=== PATIENT | male | born 1965 | race Caucasian/White ===

== ENCOUNTER 2019-04-01 22:40 | Emergency (ER) | payer OTHER ==
[~2019-04-01] VITALS: Ht 180.3 cm; Wt 93.2 kg
[2019-04-01 22:58] VITALS: Ht 180.3 cm; Wt 93.2 kg
[2019-04-01] MEDS ORDERED: DUEXIS 800-26.1 EACH PO (22:59)
[2019-04-01] MEDS ORDERED: HYDROCODON-ACE1 EA10 PO (22:59)
[2019-04-01] MEDS ORDERED: LISINOPRIL10 MG PO (22:59)
[2019-04-02 02:06] VITALS: BP 149/93
[2019-04-03] MEDS ORDERED: HYDROCODON-ACE1 EAC2 PO (12:23)
[2019-04-03] MEDS ORDERED: VISTARIL50 MG PO (16:37)
[2019-04-03] MEDS ORDERED: PERCOCET 10-321 EAC1 PO (16:37)
== END 2019-04-02 02:06 | disposition home or self-care (01) ==
LOC: D.ER 22:40
DX: S93.05XA Dislocation of left ankle joint, initial encounter (principal); W18.30XA Fall on same level, unspecified, initial encounter; Y93.89 Activity, other specified; Y92.89 Other specified places as the place of occurrence of the external cause

== ENCOUNTER 2019-04-03 10:31 | Day surgery (SDC) | payer OTHER ==
[~2019-04-03 10:31] MED LIST: DUEXIS 800-26.1 EACH PO; HYDROCODON-ACE1 EA10 PO; LISINOPRIL10 MG PO
[2019-04-03 11:16] LABS: HEMATOCRIT 44.4 % (42.0-54.0); HEMOGLOBIN 15.7 g/dL (13.5-17.5); MCH 32.4 pg (26.0-34.0); MCHC 35.4 g/dL (31.0-37.0); MCV 91.7 fL (80.0-100.0); MEAN PLATELET VOLUME 9.6 fL (7.4-10.4); RBC 4.84 10x6/uL (4.20-6.10); RDW 13.6 % (11.5-14.5); WBC 7.9 10x3/uL (4.8-10.8)
[2019-04-03] MEDS ORDERED: HYDROCODON-ACE1 EAC2 PO (12:23)
[2019-04-03 12:31] VITALS: BP 129/83; BMI 28.6
[2019-04-03] MEDS ORDERED: PERCOCET 10-321 EAC1 PO (16:37)
[2019-04-03] MEDS ORDERED: VISTARIL50 MG PO (16:37)
--- NOTE | 2019-04-03 17:45 | NUR ---
PIV DC'D WITH TIP INTACT. PATIENT DRESSING IN PERSONAL CLOTHING
--- NOTE | 2019-04-03 17:55 | NUR ---
DISCHARGE INSTRUCTIONS REVIEWED WITH PATIENT AND PARENTS, DISCHARGED HOME VIA WHEELCHAIR TO PRIVATE VEHICLE WITH PARENTS
--- NOTE | 2019-04-04 09:36 | OP ---
PATIENT NAME: EUGENIA SUN MEDICAL RECORD: [id number] :63 LOCATION:[facility] ADMISSION DATE: SURGEON: JERALD ARRIAGA DO DATE OF OPERATION: 04/03/2019 PROCEDURE PERFORMED: Left ankle open reduction internal fixation. PREOPERATIVE DIAGNOSIS: Left ankle distal fibula fracture and lateral malleolus fracture. POSTOPERATIVE DIAGNOSIS: Left ankle distal fibula fracture and lateral malleolus fracture. INDICATIONS: Mr. Sun is a 53-year-old male that presented to the ER after falling couple of days ago and had a lateral malleolus fracture, minimally displaced. He came to my clinic. He had fallen since again and he chose to have surgery. He did not think that he would risk it, so he decided to go ahead with surgery. I informed him of the risks including damage to nerves, vessels, especially superficial peroneal nerve, infection, bleeding and need for further surgery. He signed a consent. SURGEON: Jerald Arriaga MD DESCRIPTION OF THE PROCEDURE: The patient was taken to the operative suite, laid in supine position, given general anesthetic. After given a block by anesthesia and given 2 grams Ancef preoperatively, the left lower extremity was prepped and draped in sterile fashion. A timeout was performed. Everyone was agreeance with correct side, site, patient and procedure. The incision then began over the fibula. Careful dissection was made down to the fibula. The fracture was cleared out. A clamp was placed on it to reduce it. This was well reduced. A plate was put on the fibula and it is lined up on AP and lateral. Once it was in good alignment, the distal locking screws were put in first and then a compression type screw was put in the shaft. The proximal 3 holes were then filled and a locking screw was placed in the middle one and cortical screws were in the other two. This is confirmed to be good on AP and then a mortise stress view was done to make sure there is no subluxation of the talus laterally and no medial clear space widening and there was not and then a good fixation was seen on the lateral as well. The tourniquet was then let down and then was inflated prior to starting the procedure and it was up for 27 minutes. The left lower extremity had been exsanguinated with an Esmarch prior to the inflation of the tourniquet. The incision was then closed with 2-0 Vicryl in an inverted interrupted fashion and then a ZipLine was placed on it and the wound was dressed with Adaptic, 4 x 4s, and ABD and an ABD was also placed on the heel and then a 4 x 30 splint was placed on the ankle, posterior short leg splint and held in to place while it hardened. He was then awakened and taken to recovery in stable condition. Blood loss was about 50 mL. COMPLICATIONS: None. TRANSINT:[id number] Voice Confirmation ID: [id number] DOCUMENT ID: [id number] OPERATIVE REPORT [id number] EUGENIA SUN MICHAEL D, DO at 0936 CC: [id number] DICTATION DATE: 04/03/19 1634 ANGIOGRAPHY NURSE: 04/03/19 2315 [facility] 04/03/[address] [address]
[2019-05-28] MEDS ORDERED: HYDROCODONE-A1 UDTA2 PO (16:44)
[2019-05-28] MEDS ORDERED: LEXAPRO10 MG PO (16:45)
== END 2019-04-03 17:55 | disposition home or self-care (01) ==
LOC: D.OPS 10:31
PROVIDERS: Anesthesiology; ATTEND Orthopaedic Surgery
DX: S82.62XA Displaced fracture of lateral malleolus of left fibula, initial encounter for closed fracture (principal); W19.XXXA Unspecified fall, initial encounter; Z01.812 Encounter for preprocedural laboratory examination

== ENCOUNTER 2019-05-29 09:39 | Inpatient (IN) | payer OTHER ==
[~2019-05-29] VITALS: Ht 180.3 cm; Wt 93.2 kg
[2019-05-29] VITALS (10 sets, daily range): BP systolic 115–146; BP diastolic 64–101; Ht 180.3 cm; Wt 93.2 kg
[~2019-05-29 09:39] MED LIST changes: +HYDROCODON-ACE1 EAC2 PO; +HYDROCODONE-A1 UDTA2 PO; +LEXAPRO10 MG PO; +PERCOCET 10-321 EAC1 PO; +VISTARIL50 MG PO
[2019-05-29 10:10] LABS: BASOPHILS 0.2 % (0-2); EOSINOPHILS 1.3 % (0-7); HEMOGLOBIN 14.2 g/dL (13.5-17.5); IMMATURE GRANULOCYTES 0.3 % (0-5); LYMPHOCYTES 16.7 % (15-50); MCHC 34.6 g/dL (31.0-37.0); MCV 89.5 fL (80.0-100.0); MEAN PLATELET VOLUME 9.6 fL (7.4-10.4); MONOCYTES 8.5 % (2-11); PLATELET COUNT 184 10x3/uL (130-400); RBC 4.58 10x6/uL (4.20-6.10); RDW 13.1 % (11.5-14.5); WBC 9.3 10x3/uL (4.8-10.8)
[2019-05-29 11:34] LABS: ERYTHROCYTE SEDIMENTATION RATE 15 mm/hr (0-20)
--- NOTE | 2019-05-29 14:47 | NUR ---
VANCOMYCIN 1.25GRAM OF VANCOMYCIN IN 250CC OF NORMAL SALINE INFUSING ON ADMIT
--- NOTE | 2019-05-29 15:15 | NUR ---
PATIENT TO ROOM WITH NO COMPLAINTS OR SIGNS OF DISTRESS. IV INTACT. VS STABLE. LEFT LEG DRESSING CDI. CALL LIGHT WITHIN REACH. FAMILY AT BEDSIDE.
--- NOTE | 2019-05-29 16:00 | NUR ---
PATIENT VOIDED 200 ML OF LIGHT PINK URINE WITH NO BLOOD CLOTS.
--- NOTE | 2019-05-29 16:20 | NUR ---
PATIENT RECIEVED DC INSTRUCTIONS. VERBALIZED UNDERSTANDING, SON AT BEDSIDE. NO QUESTIONS AT THIS TIME. AWAITING WC FOR DC. CALL LIGHT WITHIN REACH.
--- NOTE | 2019-05-29 18:42 | NUR ---
PATIENT IN BED WITH IV INTACT. SCD ON RIGHT LEG. DRESSING TO LEFT LEG CDI. NO COMPLAINTS AT THIS TIME. VS STABLE. CALL LIGHT WITHIN REACH.
--- NOTE | 2019-05-29 19:00 | NUR ---
BEDSIDE REPORT RECEIVED AND CARE OF PT ASSUMED. PT LYING IN HIGH TABARES'S POSITION WATCHING TV. IV TO RIGHT HAND PATENT WITH 1/2 NS INFUISNG AT 50 ML/HR. DRESSING ON LEFT ANKLE CLEAN AND DRY. WILL MONITOR FOR NEEDS.
--- NOTE | 2019-05-29 20:15 | NUR ---
HS MEDICATIONS GIVEN TO INCLUDE OXY 10 PO AND TORADOL IV FOR PAIN. WILL MONITOR FOR EFFECTIVENESS.
--- NOTE | 2019-05-29 20:25 | NUR ---
GAVE SANDWICH TRAY AND APPLESAUCE FOR HS SNACK. WILL CONTINUE TO MONITOR FOR NEEDS.
--- NOTE | 2019-05-29 22:00 | NUR ---
PT RESTING QUIETLY...STATES PAIN UNDER CONTROL AT THIS TIME. WILL CONTINUE TO MONITOR FOR NEEDS.
[2019-05-30] VITALS: BP 120/68
[2019-05-30 04:00] VITALS: BP 154/84
[2019-05-30 06:46] LABS: BASOPHILS 0 % (0-2); EOSINOPHILS 0 % (0-7); HEMATOCRIT 36.6 % (42.0-54.0); HEMOGLOBIN 12.5 g/dL (13.5-17.5); IMMATURE GRANULOCYTES 0.1 % (0-5); LYMPHOCYTES 9.1 % (15-50); MCH 30.9 pg (26.0-34.0); MCHC 34.2 g/dL (31.0-37.0); MCV 90.4 fL (80.0-100.0); MEAN PLATELET VOLUME 10.3 fL (7.4-10.4); MONOCYTES 7.5 % (2-11); NEUTROPHILS 83.3 % (40-80); PLATELET COUNT 180 10x3/uL (130-400); RBC 4.05 10x6/uL (4.20-6.10); RDW 12.9 % (11.5-14.5); WBC 7.1 10x3/uL (4.8-10.8)
--- NOTE | 2019-05-30 08:41 | OP ---
PATIENT NAME: EUGENIA SUN MEDICAL RECORD: [id number] :63 LOCATION:[facility] ADMISSION DATE:05/29/19 SURGEON: JERALD ARRIAGA DO DATE OF OPERATION: 05/29/2019 PROCEDURE PERFORMED: Removal of hardware with irrigation and debridement of the left ankle and left distal fibula. PREOPERATIVE DIAGNOSIS: Infected left ankle distal fibula, status post open reduction internal fixation, postop infection. POSTOPERATIVE DIAGNOSIS: Infected left ankle distal fibula, status post open reduction internal fixation, postop infection. INDICATIONS: Mr. Sun is a 54-year-old male who presented to my office yesterday after his left ankle was beginning to swell and get red. He did not have any drainage. He said he felt feverish and this came on suddenly. He did not have any other symptoms or illnesses recently. He is 10 weeks status post left distal fibula open reduction internal fixation. This came out of nowhere and did not have any signs prior to this. The patient was doing well and the fracture was healing. Informed we would do irrigation, debridement, removal of hardware, take cultures and keep him overnight at least until the culture results ____ antibiotics, put him on. He was okay with that and was aware of the risk for further fracture, need for further surgery, continued antibiotics and he signed the consent. SURGEON: Jerald Arriaga DO PROCEDURE IN DETAIL: The patient was taken to the operative suite, laid in supine position, given general anesthetic. He was given a block by anesthesia prior to going back to the operating room. The left lower extremity was prepped and draped in sterile fashion. A timeout was performed and everyone was in agreement with correct side, site, patient and procedure had been sedated and LMA was placed. The timeout had been performed and then the incision began over the old incision on the lateral malleolus straight down to the plate. Cultures were then taken and then vancomycin was given for antibiotic. The plate screws were removed and the plate was removed and then 3 liters normal saline was used to irrigate the wound. A brush was used to scrub and a curette was used to scrape any devitalized tissue. After that was completed, the wound was closed with 2-0 Vicryl in inverted interrupted fashion and then ZipLine was placed on the skin. Adaptic, 4 x 4's, ABD and cast padding was then placed on the ankle and placed on a 4 x 30 splint, posterior short leg splint. He was awakened and taken to recovery in stable condition. BLOOD LOSS: Approximately 100 mL. COMPLICATION: None. TRANSINT:[id number] Voice Confirmation ID: [id number] DOCUMENT ID: [id number] OPERATIVE REPORT [id number] EUGENIA SUN MICHAEL D, DO at 0841 CC: [id number] DICTATION DATE: 05/29/19 1410 ENDBAND SIZER: 05/29/192013 ADM IN [facility] [address] [place] [address]
[2019-05-30 09:35] VITALS: BP 101/47
[2019-05-30 11:30] LABS: ALBUMIN 3.1 g/dL (3.4-5.0); ALKALINE PHOSPHATASE 66 U/L (46-116); ALT (SGPT) 19 U/L (10-68); BILIRUBIN - TOTAL 0.36 mg/dL (0.2-1.3); CALC OSMOLALITY 285 mosm/kg (275-300); CALCIUM 8.3 mg/dL (8.5-10.1); CARBON DIOXIDE 24.5 mmol/L (21.0-32.0); CHLORIDE - SERUM 107 mmol/L (98-107); GLUCOSE 153 mg/dL (74-106); POTASSIUM - SERUM 4.2 mmol/L (3.5-5.1); PROTEIN - SERUM 6.5 g/dL (6.4-8.2); SODIUM 141 mmol/L (136-145); UREA NITROGEN 19 mg/dL (7-18); eGFR NON AFRICAN AMERICAN 82 mL/min (90-120)
--- NOTE | 2019-05-30 11:39 | NUR ---
PT RESTING IN BED. NO SIGNS OF DISTRESS. IV TO RIGHT HAND PATENT NO REDNESS OR TENDERNESS. HAS DRESSING TO ANKLE CLEAN AND INTACT. DENIES ANY FURHTER NEED AT THIS TIME. CALL LIGHT IN REACH. BED LOW POSITION. FAMILY AT BEDSIDE
[2019-05-30 13:16] VITALS: BP 125/66
[2019-05-30 17:16] VITALS: BP 111/58
--- NOTE | 2019-05-30 19:00 | NUR ---
REPORT RECEIVED AND CARE OF PT ASSUMED. PT LYING IN HIGH TABARES'S POSITION. DISCUSSED WITH PT THAT A PHARMACY SPECIALIST HAS BEEN ORDERED. WILL MONITOR FOR NEEDS.
--- NOTE | 2019-05-30 19:10 | NUR ---
STARTED ADMINISTRATIVE SERVICES OFFICER W/ DILAUDID WITH 2ND NURSE WITNESS. TEACHING PERFORMED.
[2019-05-30 20:00] VITALS: BP 132/70
--- NOTE | 2019-05-30 20:02 | NUR ---
HS MEDICATIONS GIVEN. WILL CONTINUE TO MONITOR FOR NEEDS.
[2019-05-31] VITALS: BP 125/64
[2019-05-31 04:00] VITALS: BP 127/72
[2019-05-31 04:54] LABS: BASOPHILS 0.3 % (0-2); EOSINOPHILS 0.6 % (0-7); HEMATOCRIT 33.6 % (42.0-54.0); HEMOGLOBIN 11.4 g/dL (13.5-17.5); IMMATURE GRANULOCYTES 0.2 % (0-5); LYMPHOCYTES 41.6 % (15-50); MCH 30.8 pg (26.0-34.0); MCHC 33.9 g/dL (31.0-37.0); MCV 90.8 fL (80.0-100.0); MEAN PLATELET VOLUME 10.1 fL (7.4-10.4); MONOCYTES 6.9 % (2-11); NEUTROPHILS 50.4 % (40-80); PLATELET COUNT 160 10x3/uL (130-400); RDW 13.2 % (11.5-14.5); WBC 6.2 10x3/uL (4.8-10.8)
[2019-05-31 08:07] VITALS: BP 123/50
--- NOTE | 2019-05-31 08:45 | NUR ---
PATIENT IN BED WITH IV INTACT. NO COMPLAINTS OR SIGNS OF DISTRESS. CALL LIGHT WITHIN REACH.
[2019-05-31 09:34] LABS: ALBUMIN 3.3 g/dL (3.4-5.0); ALKALINE PHOSPHATASE 68 U/L (46-116); ALT (SGPT) 22 U/L (10-68); CALC OSMOLALITY 287 mosm/kg (275-300); CALCIUM 8.2 mg/dL (8.5-10.1); CARBON DIOXIDE 26.6 mmol/L (21.0-32.0); CHLORIDE - SERUM 107 mmol/L (98-107); GLUCOSE 108 mg/dL (74-106); POTASSIUM - SERUM 3.9 mmol/L (3.5-5.1); PROTEIN - SERUM 6.8 g/dL (6.4-8.2); SODIUM 143 mmol/L (136-145); UREA NITROGEN 19 mg/dL (7-18); eGFR NON AFRICAN AMERICAN 82 mL/min (90-120)
[2019-05-31 14:01] VITALS: BP 139/65
[2019-05-31 17:28] VITALS: BP 130/69
--- NOTE | 2019-05-31 17:30 | NUR ---
PATIENT SITTING UP IN CHAIR WITH NO COMPLAINTS OR SIGNS OF DISTRESS. CALL LIGHT WITHIN REACH.
--- NOTE | 2019-05-31 19:00 | NUR ---
BEDSIDE REPORT RECEIVED AND CARE OF PT ASSUMED. CONTACT ISOLATION PRECAUTIONS IN PLACE. PT LYING IN HIGH TABARES'S POSITION VISITING WITH FAMILY MEMBER. IV TO RIGHT HAND PATENT WITH 1/2 NS INFUSING AT 50 ML/HR, AND SERICULTURIST W/ DILAUDID IN USE FOR PAIN CONTROL. LEFT LOWER LEG ELEVATED. GOOD PEDAL AND POPLITEAL PULSES PALPATED...FOOT WARM AND TOES FREELY MOVING WITHOUT PAIN. WILL MONITOR FOR NEEDS.
--- NOTE | 2019-05-31 19:10 | NUR ---
PATIENT SITTING UP IN BED WITH FAMILY AT BEDSIDE. CALL LIGHT WITHIN REACH.
[2019-05-31 20:00] VITALS: BP 143/77
--- NOTE | 2019-05-31 20:24 | NUR ---
HS MEDICATIONS GIVEN TO INCLUDE PRN TORADOL FOR PAIN. PT DECLINED HS SNACK FAMILY HAD BROUGHT HIM A MILKSHAKE. WILL CONTINUE TO MONITOR FOR NEEDS.
[2019-06-01] VITALS: BP 127/76
[2019-06-01 04:00] VITALS: BP 111/60
[2019-06-01 06:39] LABS: BASOPHILS 0.2 % (0-2); EOSINOPHILS 2.6 % (0-7); HEMATOCRIT 36.1 % (42.0-54.0); HEMOGLOBIN 12.2 g/dL (13.5-17.5); IMMATURE GRANULOCYTES 0.2 % (0-5); LYMPHOCYTES 48.5 % (15-50); MCH 30.7 pg (26.0-34.0); MCHC 33.8 g/dL (31.0-37.0); MCV 90.9 fL (80.0-100.0); MONOCYTES 7.1 % (2-11); NEUTROPHILS 41.4 % (40-80); PLATELET COUNT 185 10x3/uL (130-400); RBC 3.97 10x6/uL (4.20-6.10); RDW 13.1 % (11.5-14.5); WBC 5.1 10x3/uL (4.8-10.8)
[2019-06-01 07:06] LABS: ALKALINE PHOSPHATASE 63 U/L (46-116); ALT (SGPT) 23 U/L (10-68); BILIRUBIN - TOTAL 0.25 mg/dL (0.2-1.3); CALC OSMOLALITY 287 mosm/kg (275-300); CALCIUM 8.2 mg/dL (8.5-10.1); CARBON DIOXIDE 27.6 mmol/L (21.0-32.0); CHLORIDE - SERUM 109 mmol/L (98-107); CREATININE - SERUM 0.9 mg/dL (0.6-1.3); GLUCOSE 88 mg/dL (74-106); POTASSIUM - SERUM 3.8 mmol/L (3.5-5.1); PROTEIN - SERUM 6.1 g/dL (6.4-8.2); SODIUM 144 mmol/L (136-145); UREA NITROGEN 18 mg/dL (7-18); eGFR NON AFRICAN AMERICAN > 90 mL/min (90-120)
--- NOTE | 2019-06-01 07:15 | NUR ---
REC'D IN ROOM AWAKE AND ALERT. RESP EVEN AND UNLABORED WITH NO DISTRESS NOTED. CAN EXPRESS NEEDS AND WANTS. NO C/O NOTED OR VOICED. DRESSING CLEAN DRY AND INTACT. ASSESSMENT COMPLETED. C/L IN REACH AT BEDSIDE.
[2019-06-01 08:34] VITALS: BP 138/82
[2019-06-01] MEDS ORDERED: VIBRAMYCIN 100100 MG PO (08:48)
[2019-06-01] MEDS ORDERED: LOW DOSE ASPIRI81 M1 PO (08:49)
[2019-06-01] MEDS ORDERED: OXYCODONE HCL5 M1 PO (08:49)
--- NOTE | 2019-06-01 10:01 | MORECARE ---
CASE MANAGEMENT DISCHARGE SUMMARY PATIENT: EUGENIA SUN UNIT: [id number] ADM DATE: 05/29/19 AGE: 54 : 63 SEX: M ROOM/BED: D.2225 AUTHOR: VESTA RIZZO PHYSICIAN: REFERRING PHYSICIAN: JERALD ARRIAGA DO DATE OF SERVICE: 06/01/19 Discharge Plan Patient Name: EUGENIA SUN Facility: [facility]:[place] : 1965 Planned Disposition: Home Anticipated Discharge Date: 06/01/19 Discharge Date: Expected LOS: 3 Initial Reviewer: [email or web address] Initial Review Date: 05/29/2019 Generated: 06/01/19 11:01 am Comments DCP- Discharge Planning Updated by [email or web address]: Dilia Haddad on 06/01/19 8:[address] Patient Name: EUGENIA SUN Admission Status: Elective Accout number: [id number] Admission Date: 05-29-2019 : 1965 Admission Diagnosis: Attending: JERALD ARRIAGA Current LOS: 3 Anticipated DC Date: 06-01-2019 Planned Disposition: Home Primary Insurance: [facility] Discharge Planning Comments: CM MET WITH PATIENT AND HIS FAMILY. HE STATES HE HAS WALKER AND CRUTCHES AT HOME AND HIS MOM IS GOING TO HELP HIM. PLANS TO DC TO HOME TODAY. STATES DOESN'T NEED HH. CM TO FOLLOW AND ASSIST NEEDED. Blister Pack Operator: Dilia Haddad Patient Name: EUGENIA SUN Page [phone] at 1001 All edits/amendments must be made on the electronic document DICTATION DATE: 06/01/[address] LIGHT SERVICER: ANSLEY 06/01/19 1001 RPT#: [id number] DC DATE: STATUS: ADM IN [facility] [address] [place] [address] END OF REPORT
--- NOTE | 2019-06-01 10:32 | NUR ---
DC HOME AT THIS TIME VOICED UNDERSTANDING OF DC ORDERS. IV DC WITH TIP INTACT. DRESSING CLEAN DRY AND INTACT TO LLE. STABLE CONDITION UPON DEPARTURE.
--- NOTE | 2019-06-01 12:11 | MORECARE ---
CASE MANAGEMENT DISCHARGE SUMMARY PATIENT: EUGENIA SUN UNIT: [id number] ADM DATE: 05/29/19 AGE: 54 : 63 SEX: M ROOM/BED: D.2225 AUTHOR: VESTA RIZZO PHYSICIAN: REFERRING PHYSICIAN: JERADL ARRIAGA DO DATE OF SERVICE: 06/01/19 Discharge Plan Patient Name: EUGENIA SUN [facility] [facility] 1965 Planned Disposition: Home Anticipated Discharge Date: 06/01/19 Discharge Date: 06/01/2019 Expected LOS: 3 Initial Reviewer: [email or web address] Initial Review Date: 05/29/2019 Generated: 06/01/19 1:10 pm Comments DCP- Discharge Planning Updated by [email or web address]: Dilia Haddad on 06/01/19 8:[address] Patient Name: EUGENIA SUN Admission Status: Elective Accout number: [id number] Admission Date: 05-29-2019 : 1965 Admission Diagnosis: Attending: JERALD ARRIAGA Current LOS: 3 Anticipated DC Date: 06-01-2019 Planned Disposition: Home Primary Insurance: [facility] Discharge Planning Comments: CM MET WITH PATIENT AND HIS FAMILY. HE STATES HE HAS WALKER AND CRUTCHES AT HOME AND HIS MOM IS GOING TO HELP HIM. PLANS TO DC TO HOME TODAY. STATES DOESN'T NEED HH. CM TO FOLLOW AND ASSIST NEEDED. Air Cargo Specialist Supervisor: Dilia Haddad Last DP export: 06/01/19 9:01 a Patient Name: EUGENIA SUN Page [phone] at 1211 All edits/amendments must be made on the electronic document DICTATION DATE: 06/01/19 1210 CASING OPERATOR: ANSLEY 06/01/19 1210 RPT#: [id number] DC DATE:06/01/19 STATUS: DIS IN [facility] [address] [facility] [place] [address] END OF REPORT
== END 2019-06-01 10:36 | disposition home or self-care (01) | DRG 493 ==
LOC: D.OPS 09:39 → D.PAN 12:15 → D.MS 14:49 → D.OPS 14:50 → D.MS 14:51
PROVIDERS: Anesthesiology; ADMIT Orthopaedic Surgery; ATTEND Orthopaedic Surgery
PROC: 0SPG04Z Removal of Internal Fixation Device from Left Ankle Joint, Open Approach (ICD-10-PCS; principal; 2019-05-29 12:15)
PROC: 2W3RX1Z Immobilization of Left Lower Leg using Splint (ICD-10-PCS; 2019-05-29 12:15)
DX: T84.69XA Infection and inflammatory reaction due to internal fixation device of other site, initial encounter (principal); M00.9 Pyogenic arthritis, unspecified; D62 Acute posthemorrhagic anemia; I10 Essential (primary) hypertension; K21.9 Gastro-esophageal reflux disease without esophagitis; B95.61 Methicillin susceptible Staphylococcus aureus infection as the cause of diseases classified elsewhere

== ENCOUNTER 2021-01-10 08:27 | Observation (INO) | payer OTHER ==
[~2021-01-10] VITALS: Ht 180.3 cm; Wt 87.6 kg
[~2021-01-10 08:27] MED LIST changes: +LOW DOSE ASPIRI81 M1 PO; +OXYCODONE HCL5 M1 PO; +VIBRAMYCIN 100100 MG PO
[2021-01-10 08:39] VITALS: BP 117/78
[2021-01-10 08:51] LABS: BASOPHILS 0.1 % (0-2); EOSINOPHILS 2.4 % (0-7); HEMATOCRIT 39.9 % (42.0-54.0); HEMOGLOBIN 13.5 g/dL (13.5-17.5); IMMATURE GRANULOCYTES 0.3 % (0-5); LYMPHOCYTE ABS# 1.13 10x3/uL (1.32-3.57); LYMPHOCYTES 16.1 % (15-50); MCH 30.8 pg (26.0-34.0); MCHC 33.8 g/dL (31.0-37.0); MCV 91.1 fL (80.0-100.0); MEAN PLATELET VOLUME 8.8 fL (7.4-10.4); MONOCYTES 5.5 % (2-11); NEUTROPHIL ABS# 5.31 10x3/uL (1.78-5.38); NEUTROPHILS 75.6 % (40-80); PLATELET COUNT 174 10x3/uL (130-400); RBC 4.38 10x6/uL (4.20-6.10); RDW 13.1 % (11.5-14.5)
[2021-01-10 08:59] LABS: APTT 32.8 SECONDS (22.8-39.4); INR 1.04 (0.85-1.17); PROTIME 12.5 SECONDS (11.6-15.0)
[2021-01-10 09:00] LABS: CALC OSMOLALITY 282 mosm/kg (275-300); CALCIUM 8.7 mg/dL (8.5-10.1); CHLORIDE - SERUM 105 mmol/L (98-107); CREATININE - SERUM 0.9 mg/dL (0.6-1.3); GLUCOSE 128 mg/dL (74-106); POTASSIUM - SERUM 4.8 mmol/L (3.5-5.1); SODIUM 138 mmol/L (136-145); UREA NITROGEN 26 mg/dL (7-18); eGFR NON AFRICAN AMERICAN > 90 mL/min (90-120)
[2021-01-10 09:16] LABS: ALBUMIN 3.6 g/dL (3.4-5.0); ALKALINE PHOSPHATASE 85 U/L (30-120); ALT (SGPT) 82 U/L (10-68); BILIRUBIN - TOTAL 0.48 mg/dL (0.2-1.3); CKMB 4.8 U/L (0.0-3.6); CREATINE KINASE 148 UL (21-232); MAGNESIUM - SERUM 2.3 mg/dL (1.8-2.4); PROTEIN - SERUM 6.6 g/dL (6.4-8.2); TROPONIN-I < 0.017 ng/mL (0.000-0.060)
[2021-01-10 15:00] VITALS: BP 136/85
[2021-01-10] MEDS ORDERED: LIPITOR10 MG PO (15:26)
[2021-01-10] MEDS ORDERED: CIALIS2.5 MG PO (15:27)
[2021-01-10] MEDS ORDERED: ADDERALL 30 MG30 MG PO (15:30)
[2021-01-10] MEDS ORDERED: FISH OIL 1,0001 CA1 PO (15:30)
[2021-01-10 17:02] VITALS: BP 136/85; Ht 180.3 cm; Wt 87.6 kg
[2021-01-10 18:27] LABS: CKMB 3.7 U/L (0.0-3.6); CREATINE KINASE 110 UL (21-232)
[2021-01-10 18:28] LABS: TROPONIN-I < 0.017 ng/mL (0.000-0.060)
[2021-01-10 19:00] VITALS: BP 111/60
--- NOTE | 2021-01-10 19:43 | NUR ---
RECIEVED UPIN BED WITH EYS OPEN AND TV ON. ALERT AND ORIENTED X4. UP AD GRETEL TO B/R. IV TO LT FA SL. TELEMETRY IN PLACE. DENIES ANY PAIN AT THIS TIME.
[2021-01-10] MEDS ORDERED: HYDROCODON-ACE1 EA10 PO (20:41)
[2021-01-10 23:39] LABS: CKMB 3.4 U/L (0.0-3.6); CREATINE KINASE 105 UL (21-232)
[2021-01-10 23:40] LABS: TROPONIN-I < 0.017 ng/mL (0.000-0.060)
[2021-01-11] VITALS: BP 130/77
[2021-01-11 04:00] VITALS: BP 104/61
[2021-01-11 05:23] LABS: BASOPHILS 0.2 % (0-2); EOSINOPHILS 2.6 % (0-7); HEMATOCRIT 36.8 % (42.0-54.0); HEMOGLOBIN 12.5 g/dL (13.5-17.5); IMMATURE GRANULOCYTES 0.2 % (0-5); LYMPHOCYTE ABS# 1.92 10x3/uL (1.32-3.57); LYMPHOCYTES 33.2 % (15-50); MCH 30.8 pg (26.0-34.0); MCV 90.6 fL (80.0-100.0); MEAN PLATELET VOLUME 9.1 fL (7.4-10.4); MONOCYTES 7.6 % (2-11); NEUTROPHIL ABS# 3.26 10x3/uL (1.78-5.38); NEUTROPHILS 56.2 % (40-80); PLATELET COUNT 168 10x3/uL (130-400); RBC 4.06 10x6/uL (4.20-6.10); RDW 13.1 % (11.5-14.5); WBC 5.8 10x3/uL (4.8-10.8)
[2021-01-11 05:31] LABS: INR 1.09 (0.85-1.17); PROTIME 13.1 SECONDS (11.6-15.0)
[2021-01-11 05:43] LABS: ALBUMIN 3.3 g/dL (3.4-5.0); ALKALINE PHOSPHATASE 70 U/L (30-120); ALT (SGPT) 80 U/L (10-68); CALCIUM 8.4 mg/dL (8.5-10.1); CARBON DIOXIDE 25.7 mmol/L (21.0-32.0); CHLORIDE - SERUM 108 mmol/L (98-107); CREATININE - SERUM 0.8 mg/dL (0.6-1.3); GLUCOSE 107 mg/dL (74-106); SODIUM 139 mmol/L (136-145); eGFR NON AFRICAN AMERICAN > 90 mL/min (90-120)
[2021-01-11 05:45] LABS: CALC OSMOLALITY 279 mosm/kg (275-300); UREA NITROGEN 19 mg/dL (7-18)
[2021-01-11 07:54] VITALS: BP 116/60
--- NOTE | 2021-01-11 10:00 | NUR ---
BACK FROM FIST HALF STRESS TEST. DIET RESUMED.
[2021-01-11 11:45] VITALS: BP 118/64; BP 135/79
--- NOTE | 2021-01-11 12:07 | NUR ---
LEAVING FOR LAST PART STRESS TEST BY W/C. WILL CONT. PLAN OF CARE.
[2021-01-11 15:07] VITALS: BP 126/68
--- NOTE | 2021-01-11 17:38 | NUR ---
IV AND TELEMETRY DCD. DC PLANS GIVEN. UNDERSTANDING VOICED. ESCORTED TO CAR BY W/C.
== END 2021-01-11 17:39 | disposition home or self-care (01) ==
LOC: D.ER 08:27 → OBSVTIME 13:35 → D.M2 13:35
PROVIDERS: Emergency Medicine; ADMIT Emergency Medicine; ATTEND Emergency Medicine
DX: I20.9 Angina pectoris, unspecified (principal); I10 Essential (primary) hypertension; K21.9 Gastro-esophageal reflux disease without esophagitis; E78.5 Hyperlipidemia, unspecified

== ENCOUNTER 2021-01-13 08:00 | Outpatient (CLI) | payer OTHER ==
[~2021-01-13 08:00] MED LIST changes: +ADDERALL 30 MG30 MG PO; +CIALIS2.5 MG PO; +FISH OIL 1,0001 CA1 PO; +LIPITOR10 MG PO
[2021-02-02 06:54] VITALS: BMI 28.1
== END 2021-01-13 08:01 | disposition home or self-care (01) ==
LOC: D.PAN 08:00 → EDSTATUS 01-18 09:45 → D.OPS 01-18 09:45
PROVIDERS: ATTEND Neurological Surgery
DX: M54.16 Radiculopathy, lumbar region (principal)

== ENCOUNTER 2021-02-02 05:46 | Day surgery (SDC) | payer OTHER ==
[~2021-02-02] VITALS: Ht 177.8 cm; Wt 89.1 kg
--- NOTE | ~2021-02-02 | OP ---
PATIENT NAME: EUGENIA SUN MEDICAL RECORD: [id number] :63 LOCATION:[facility] ADMISSION DATE: SURGEON: JAVAD TRUONG MD DATE OF OPERATION: 02/02/2021 DATE OF SERVICE: 02/02/2021 PREOPERATIVE DIAGNOSES: Lumbar spinal stenosis with foraminal stenosis and central canal stenosis at L4-L5 on the right as well as left. POSTOPERATIVE DIAGNOSES: Lumbar spinal stenosis with foraminal stenosis and central canal stenosis at L4-L5 on the right as well as left. PROCEDURE: Lumbar laminectomy, medial facetectomy, and foraminotomy L4-L5 on the right with left sublaminar decompression and left L4-L5 foraminotomy. SURGEON: Javad Truong MD DESCRIPTION OF PROCEDURE: After induction of general endotracheal anesthesia, the patient was rolled prone on a Max frame. Lumbar spine was prepped and draped in the usual sterile fashion. Fluoroscopic x-ray and spinal needle localized the L4-L5 interspace on the right side. After infiltration with 1:100,000 epinephrine with 1% lidocaine, a series of dilators were used to advance a METRx retractor to the L4-L5 interspace on the right side. This was confirmed with fluoroscopic x-ray. A microscope and Midas Gregorio drill were used to perform a laminectomy, medial facetectomy, and foraminotomy at L4-L5 on the right. Hypertrophied ligamentum flavum was removed with Cloward rongeurs. This appeared to relieve nerve root compression at L4 and L5 nerve roots on the right. The spinous process of L4 was undermined with the Midas Gregorio drill. The central ligamentum flavum was removed with Cloward rongeurs. Next, additional ligamentum flavum was removed in the opposite left L4-L5 foramen. This decompressed the L4 and L5 nerve roots on the left as well. Meticulous hemostasis was maintained throughout the wound. The wound was irrigated with copious amounts of Ancef irrigant solution. The fascia was closed with 2-0 Vicryl suture. Subdermal layer was closed with 3-0 Vicryl suture. Skin was closed with henry. A sterile dressing was applied to the wound. The patient was awakened in good condition and taken to recovery. All counts were reported as correct. ESTIMATED BLOOD LOSS: Minimal. TRANSINT:[id number] Voice Confirmation ID: [id number] DOCUMENT ID: [id number] JAVAD TRUONG MD CC: [id number] DICTATION DATE: 02/14/21 1043 PERSONAL HEALTH COACH: 02/14/21 1126 [facility] 02/02/21 [place] [id number] [place] [id number]
[2021-02-02 06:23] LABS: ANION GAP 10.9 mmol/L (8-16); CALCIUM 8.3 mg/dL (8.5-10.1); CARBON DIOXIDE 29.1 mmol/L (21.0-32.0); CREATININE - SERUM 1.1 mg/dL (0.6-1.3)
[2021-02-02 06:24] LABS: BASOPHILS 0.2 % (0-2); EOSINOPHILS 4.1 % (0-7); HEMOGLOBIN 12.8 g/dL (13.5-17.5); IMMATURE GRANULOCYTES 0.2 % (0-5); LYMPHOCYTE ABS# 2.38 10x3/uL (1.32-3.57); MCH 31.1 pg (26.0-34.0); MCHC 33.7 g/dL (31.0-37.0); MCV 92.2 fL (80.0-100.0); MEAN PLATELET VOLUME 9.6 fL (7.4-10.4); MONOCYTES 8.5 % (2-11); NEUTROPHIL ABS# 2.33 10x3/uL (1.78-5.38); PLATELET COUNT 188 10x3/uL (130-400); RBC 4.12 10x6/uL (4.20-6.10); WBC 5.4 10x3/uL (4.8-10.8)
[2021-02-02 06:54] VITALS: BP 126/78; Ht 177.8 cm; Wt 89.1 kg
[2021-02-02] MEDS ORDERED: MEDROL DOSE PACK4 MG PO (11:03)
[2021-02-02] MEDS ORDERED: HYDROCODON-ACE1 EA10 PO (11:03)
--- NOTE | 2021-02-02 13:45 | NUR ---
1330 PT WALKING BY HIMSELF BACK TO BED AFTER VOIDING AND LIMPING/ALMOST LOOSING BALANCE. I ASSISTED PT BACK TO BED WITHOUT INCIDENT. PT STATES HE HAS SEVERE PAIN WHEN AMBULATING AND THAT HE WAS LIMPING LIKE THIS PREOPERATIVELY. [address] ARIAS WHO WILL COME SEE PATIENT. 1340 IV DC'D. CATHETER TIP INTACT. NO BLEEDING AT SITE. COBAN APPLIED.
--- NOTE | 2021-02-02 14:37 | NUR ---
1400 PT URINATED AND STARTED HER PERIOD. INSTRUCTIONS GIVEN. IV REMOVED.
--- NOTE | 2021-02-02 14:49 | NUR ---
1357 DR ARIAS AT PATIENT'S BEDSIDE. PT OFFERED PER DR ARIAS TO BE ADMITTED AND RECEIVE IV STEROIDS. PT CHOOSES TO GO HOME AND TAKE PO MEDROL DOSEPAK. PT IS TO F/U WITH DR ARIAS IN THE OFFICE ON SATURDAY AT 10 AM. APPOINTMENT TIME CHANGED ON DISCHARGE PAPERS AND PT AWARE OF NEW APPT TIME.
== END 2021-02-02 14:20 | disposition home or self-care (01) ==
LOC: D.OPS 05:46
PROVIDERS: Anesthesiology; ATTEND Neurological Surgery
DX: M54.16 Radiculopathy, lumbar region (principal); M48.062 Spinal stenosis, lumbar region with neurogenic claudication